=== PATIENT | male | born 2000 | race African-American/Black ===

== ENCOUNTER 2022-05-23 19:56 | Emergency (ER) | payer SELFPAY ==
[~2022-05-23] VITALS: Ht 182.9 cm; Wt 124.7 kg
[2022-05-23] MEDS ORDERED: CYCLOBENZAPRINE10 MG PO (21:45)
[2022-05-23] MEDS ORDERED: GABAPENTIN300 MG PO (21:46)
[2022-05-23] MEDS ORDERED: OXYCONTIN10 MG PO ×2 (21:48→22:03)
[2022-05-23 21:58] VITALS: BP 115/59
== END 2022-05-23 21:58 | disposition home or self-care (01) ==
LOC: VACCPMC 20:25 → FSED 21:58
DX: Z76.0 Encounter for issue of repeat prescription (principal); S71.102D Unspecified open wound, left thigh, subsequent encounter; S81.802D Unspecified open wound, left lower leg, subsequent encounter; M21.372 Foot drop, left foot; F17.210 Nicotine dependence, cigarettes, uncomplicated
CPT/HCPCS: 99282